=== PATIENT | female | born 1950 | race African-American/Black ===

== ENCOUNTER 2017-04-01 21:45 | Emergency (ER) | payer OTHER ==
[~2017-04-01] VITALS: Ht 172.7 cm; Wt 76.0 kg
[~2017-04-01 21:45] MED LIST: ASPI-1159 PO; BENA20TA3 PO; NIFE60TA64 PO
[2017-04-02 04:30] VITALS: BP 126/75
== END 2017-04-02 05:30 | disposition home or self-care (01) ==
LOC: ER 21:45
DX: B00.1 Herpesviral vesicular dermatitis (principal); H54.3 Unqualified visual loss, both eyes; I10 Essential (primary) hypertension
CPT/HCPCS: 99282

== ENCOUNTER 2017-04-04 23:28 | Emergency (ER) | payer OTHER ==
[~2017-04-04] VITALS: Ht 170.2 cm; Wt 76.0 kg
[2017-04-05] MEDS ORDERED: ACETAMINOPHEN 325MG TABLET PO ONE ×2 (07:00→07:15)
[2017-04-05 07:40] VITALS: BP 130/71
== END 2017-04-05 08:14 | disposition home or self-care (01) ==
LOC: ER 23:28
DX: S00.03XA Contusion of scalp, initial encounter (principal); I10 Essential (primary) hypertension; R42 Dizziness and giddiness; Z79.82 Long term (current) use of aspirin; Z86.73 Personal history of transient ischemic attack (TIA), and cerebral infarction without residual deficits; Y08.89XA Assault by other specified means, initial encounter; Y93.89 Activity, other specified; Y92.89 Other specified places as the place of occurrence of the external cause; Y99.8 Other external cause status
CPT/HCPCS: 70450; 70486; 72125; 99284

== ENCOUNTER 2017-05-04 03:41 | Emergency (ER) | payer OTHER ==
[~2017-05-04] VITALS: Ht 172.7 cm; Wt 75.5 kg
[2017-05-04 05:09] VITALS: BP 128/79
== END 2017-05-04 05:11 | disposition home or self-care (01) ==
LOC: ER 03:41
DX: G89.29 Other chronic pain (principal); M79.601 Pain in right arm; M79.602 Pain in left arm; M79.604 Pain in right leg; M79.605 Pain in left leg; I10 Essential (primary) hypertension; Z79.82 Long term (current) use of aspirin
CPT/HCPCS: 81025; 99282

== ENCOUNTER 2017-05-05 00:57 | Emergency (ER) | payer OTHER ==
[~2017-05-05] VITALS: Ht 170.2 cm; Wt 76.0 kg
[2017-05-05 01:13] VITALS: BP 144/91
== END 2017-05-05 08:13 | disposition left against medical advice (07) ==
LOC: ER 00:57
DX: Z53.21 Procedure and treatment not carried out due to patient leaving prior to being seen by health care provider (principal)

== ENCOUNTER 2017-05-07 00:31 | Emergency (ER) | payer OTHER ==
[~2017-05-07] VITALS: Ht 172.7 cm; Wt 77.0 kg
[2017-05-07 00:40] VITALS: BP 153/88
[2017-05-07] MEDS ORDERED: TRAMADOL 50MG TABLET PO ONE (01:30)
== END 2017-05-07 01:52 | disposition home or self-care (01) ==
LOC: ER 00:31
DX: Z76.0 Encounter for issue of repeat prescription (principal); M79.672 Pain in left foot; M79.671 Pain in right foot; G89.29 Other chronic pain; J06.9 Acute upper respiratory infection, unspecified; I10 Essential (primary) hypertension; F17.200 Nicotine dependence, unspecified, uncomplicated; Z79.82 Long term (current) use of aspirin
CPT/HCPCS: 99283

== ENCOUNTER 2017-05-09 04:36 | Emergency (ER) | payer OTHER ==
[~2017-05-09] VITALS: Ht 175.3 cm; Wt 77.0 kg
[2017-05-09] MEDS ORDERED: HYDROCODONE/ACETAMINOPHEN 5/325MG TABLET PO ONE (08:45)
[2017-05-09] MEDS ORDERED: KETOROLAC 60MG/2ML VIAL IM ONE (08:45)
[2017-05-09 10:25] VITALS: BP 108/62
== END 2017-05-09 12:27 | disposition home or self-care (01) ==
LOC: ER 04:36
DX: M21.611 Bunion of right foot (principal); M20.41 Other hammer toe(s) (acquired), right foot; I10 Essential (primary) hypertension; Z79.82 Long term (current) use of aspirin
CPT/HCPCS: 96372; 99283; J1885

== ENCOUNTER 2017-05-11 00:51 | Emergency (ER) | payer OTHER ==
[~2017-05-11] VITALS: Ht 172.7 cm; Wt 77.3 kg
[2017-05-11] MEDS ORDERED: KETOROLAC 60MG/2ML VIAL IM SCH (06:12)
[2017-05-11 07:01] LABS: BASOPHILS % 1.1 % (0.0-2.0); EOSINOPHILS % 2.9 % (0.0-5.0); HEMATOCRIT. 37.7 % (36.0-48.0); HEMOGLOBIN. 12.7 g/dL (12.0-16.0); LYMPHOCYTES % 34.9 % (20.0-50.0); MEAN CORPUSCULAR HEMOGLOBIN 34.2 pg (28.0-32.0); MEAN CORPUSCULAR VOLUME 101.4 fL (81.0-99.0); MEAN PLATELET VOLUME 9.5 fl (7.4-10.4); NEUTROPHILS % 51.1 % (40.0-76.0); PLATELET 222 x1000/uL (130-400); RED BLOOD CELL COUNT 3.72 mill/uL (4.2-5.4); RED CELL DISTRIBUTION WIDTH 13.4 % (11.6-14.6)
[2017-05-11 09:49] VITALS: BP 134/85
== END 2017-05-11 09:54 | disposition home or self-care (01) ==
LOC: ER 00:51
DX: M20.11 Hallux valgus (acquired), right foot (principal); L84 Corns and callosities; M21.611 Bunion of right foot; I10 Essential (primary) hypertension; Z79.82 Long term (current) use of aspirin
CPT/HCPCS: 36415; 73630; 84550; 85025; 96372; 99285; J1885

== ENCOUNTER 2017-05-12 04:36 | Emergency (ER) | payer OTHER ==
[~2017-05-12] VITALS: Ht 172.7 cm; Wt 77.0 kg
[2017-05-12 06:17] VITALS: BP 146/71
== END 2017-05-12 07:02 | disposition home or self-care (01) ==
LOC: ER 04:36
DX: R05 Cough (principal); Z76.0 Encounter for issue of repeat prescription; I10 Essential (primary) hypertension; Z79.82 Long term (current) use of aspirin; Z59.0 Homelessness
CPT/HCPCS: 99283

== ENCOUNTER 2017-05-13 03:00 | Emergency (ER) | payer OTHER ==
[~2017-05-13] VITALS: Ht 172.7 cm; Wt 77.0 kg
[2017-05-13] MEDS ORDERED: ACETAMINOPHEN WITH CODEINE 300/30MG TABLET PO ONE (08:00)
[2017-05-13] MEDS ORDERED: KETOROLAC 30MG/ML VIAL IM ONE (08:00)
[2017-05-13 10:21] VITALS: BP 116/75
== END 2017-05-13 10:25 | disposition home or self-care (01) ==
LOC: ER 03:00
DX: M21.612 Bunion of left foot (principal); M21.611 Bunion of right foot; B34.9 Viral infection, unspecified; I10 Essential (primary) hypertension; Z79.82 Long term (current) use of aspirin
CPT/HCPCS: 96372; 99283; J1885

== ENCOUNTER 2017-05-14 02:39 | Emergency (ER) | payer OTHER ==
[~2017-05-14] VITALS: Ht 172.7 cm; Wt 77.4 kg
[2017-05-14] MEDS ORDERED: KETOROLAC 15MG/ML VIAL IM ONE (05:30)
[2017-05-14] MEDS ORDERED: KETOROLAC 60MG/2ML VIAL IM ONE (07:00)
[2017-05-14 07:14] VITALS: BP 142/74
[2017-05-14] MEDS ORDERED: ACYCLOVIR 400 MG TABLET PO ONE (07:30)
== END 2017-05-14 07:23 | disposition home or self-care (01) ==
LOC: ER 02:39
DX: M79.672 Pain in left foot (principal); M79.671 Pain in right foot; I10 Essential (primary) hypertension; B00.9 Herpesviral infection, unspecified; Z76.0 Encounter for issue of repeat prescription; Z79.82 Long term (current) use of aspirin; Z59.0 Homelessness
CPT/HCPCS: 96372; 99283; J1885

== ENCOUNTER 2017-05-15 01:55 | Emergency (ER) | payer OTHER ==
[~2017-05-15] VITALS: Ht 172.7 cm; Wt 77.0 kg
[2017-05-15] MEDS ORDERED: SODIUM CHLORIDE 0.9% 1,000 ML IV ONE (03:21)
[2017-05-15 03:38] LABS: BASOPHILS % 0.8 % (0.0-2.0); EOSINOPHILS % 5.4 % (0.0-5.0); HEMATOCRIT. 37.6 % (36.0-48.0); HEMOGLOBIN. 12.5 g/dL (12.0-16.0); LYMPHOCYTES % 30.4 % (20.0-50.0); MEAN CORPUSCULAR VOLUME 102.3 fL (81.0-99.0); MEAN PLATELET VOLUME 9.2 fl (7.4-10.4); MONOCYTES % 10.2 % (2.0-8.0); NEUTROPHILS % 53.2 % (40.0-76.0); PLATELET 213 x1000/uL (130-400); RED BLOOD CELL COUNT 3.67 mill/uL (4.2-5.4); RED CELL DISTRIBUTION WIDTH 13.1 % (11.6-14.6)
[2017-05-15 03:47] LABS: CHLORIDE 106 mEq/L (98-107); ETHANOL BLOOD < 10 mg/dL
[2017-05-15 06:53] VITALS: BP 114/61
== END 2017-05-15 06:53 | disposition home or self-care (01) ==
LOC: ER 01:55
DX: F10.129 Alcohol abuse with intoxication, unspecified (principal); I10 Essential (primary) hypertension; F17.200 Nicotine dependence, unspecified, uncomplicated; Z79.82 Long term (current) use of aspirin
CPT/HCPCS: 36415; 80053; 85025; 96360; 99284; G0482; J7030; Z7610

== ENCOUNTER 2017-05-20 02:09 | Emergency (ER) | payer OTHER ==
[~2017-05-20] VITALS: Ht 172.7 cm; Wt 78.0 kg
[2017-05-20] MEDS ORDERED: ALBUTEROL (0.083%) 2.5MG/3ML NEB HHN ONE (08:45)
[2017-05-20 09:45] VITALS: BP 134/77
== END 2017-05-20 10:08 | disposition home or self-care (01) ==
LOC: ER 02:18
DX: S90.121A Contusion of right lesser toe(s) without damage to nail, initial encounter (principal); R05 Cough; I10 Essential (primary) hypertension; M19.90 Unspecified osteoarthritis, unspecified site; Z79.82 Long term (current) use of aspirin; X58.XXXA Exposure to other specified factors, initial encounter; Y93.89 Activity, other specified; Y92.488 Other paved roadways as the place of occurrence of the external cause
CPT/HCPCS: 71045; 94640; 99283; J7611

== ENCOUNTER 2017-08-13 00:52 | Emergency (ER) | payer OTHER | END 2017-08-13 02:02 | disposition left against medical advice (07) | LOC: ER 00:52 | DX: Z53.21 Procedure and treatment not carried out due to patient leaving prior to being seen by health care provider (principal) ==

== ENCOUNTER 2017-09-11 05:19 | Emergency (ER) | payer OTHER ==
[~2017-09-11] VITALS: Ht 172.7 cm; Wt 74.0 kg
[2017-09-11 08:00] VITALS: BP 128/68
== END 2017-09-11 08:30 | disposition home or self-care (01) ==
LOC: ER 05:19
DX: J06.9 Acute upper respiratory infection, unspecified (principal); M20.11 Hallux valgus (acquired), right foot; I10 Essential (primary) hypertension
CPT/HCPCS: 71045; 73630; 99284

== ENCOUNTER 2018-10-21 02:07 | Emergency (ER) | payer OTHER ==
[~2018-10-21] VITALS: Ht 170.2 cm; Wt 68.8 kg
[~2018-10-21 02:07] MED LIST changes: -ASPI-1159 PO; +ASPI-1393 PO; +BENA20TA10 PO; -BENA20TA3 PO
[2018-10-21 02:31] VITALS: BP 170/83
== END 2018-10-21 09:20 | disposition home or self-care (01) ==
LOC: ER 02:07
DX: Z00.00 Encounter for general adult medical examination without abnormal findings (principal); Z59.0 Homelessness; I10 Essential (primary) hypertension; Z79.899 Other long term (current) drug therapy; Z79.82 Long term (current) use of aspirin
CPT/HCPCS: 99281

== ENCOUNTER 2018-10-21 21:38 | Emergency (ER) | payer OTHER ==
[~2018-10-21] VITALS: Ht 172.7 cm; Wt 69.2 kg
[2018-10-22] MEDS ORDERED: ACETAMINOPHEN 325MG TABLET PO ONE (00:15)
[2018-10-22 12:45] VITALS: BP 115/70
== END 2018-10-22 12:51 | disposition home or self-care (01) ==
LOC: ER 21:38
DX: M21.612 Bunion of left foot (principal); M21.611 Bunion of right foot; L84 Corns and callosities; I10 Essential (primary) hypertension; F12.10 Cannabis abuse, uncomplicated; Z79.82 Long term (current) use of aspirin; Z59.0 Homelessness
CPT/HCPCS: 73630; 99283

== ENCOUNTER 2018-10-22 23:01 | Emergency (ER) | payer OTHER ==
[~2018-10-22] VITALS: Ht 167.6 cm; Wt 63.0 kg
[2018-10-23] MEDS ORDERED: IBUPROFEN 800MG TABLET PO ONE (01:30)
[2018-10-23 09:02] VITALS: BP 139/84
== END 2018-10-23 09:02 | disposition home or self-care (01) ==
LOC: ER 23:21
DX: M79.672 Pain in left foot (principal); M79.671 Pain in right foot; I10 Essential (primary) hypertension; F12.10 Cannabis abuse, uncomplicated; Z59.0 Homelessness; Z79.82 Long term (current) use of aspirin
CPT/HCPCS: 99283

== ENCOUNTER 2018-12-12 08:55 | Emergency (ER) | payer OTHER ==
[~2018-12-12] VITALS: Ht 172.7 cm; Wt 70.0 kg
[2018-12-12] MEDS ORDERED: ACETAMINOPHEN 325MG TABLET PO ONE (11:30)
[2018-12-12] MEDS ORDERED: SULFAMETHOXAZOLE/TRIMETHOPRIM 800/160MG TABLET PO ONE (13:15)
[2018-12-12] MEDS ORDERED: CEPHALEXIN 250MG CAPSULE PO ONE (13:15)
[2018-12-12 14:05] VITALS: BP 149/88
== END 2018-12-12 14:40 | disposition home or self-care (01) ==
LOC: ER 10:40
DX: M79.672 Pain in left foot (principal); M79.671 Pain in right foot; I10 Essential (primary) hypertension; F12.10 Cannabis abuse, uncomplicated; Z79.82 Long term (current) use of aspirin; Z79.899 Other long term (current) drug therapy
CPT/HCPCS: 99284

== ENCOUNTER 2018-12-17 23:50 | Emergency (ER) | payer OTHER ==
[~2018-12-17] VITALS: Ht 170.2 cm; Wt 66.3 kg
[2018-12-18] MEDS ORDERED: NAPROXEN 250MG TABLET PO ONE (02:45)
[2018-12-18 03:16] LABS: BASOPHILS % 1.3 % (0.0-2.0); EOSINOPHILS % 4.3 % (0.0-5.0); HEMATOCRIT. 41.5 % (36.0-48.0); LYMPHOCYTES % 29.8 % (20.0-50.0); MEAN CORPUSCULAR HEMOGLOBIN 35.1 pg (28.0-32.0); MEAN CORPUSCULAR VOLUME 103.7 fL (81.0-99.0); MEAN PLATELET VOLUME 9.1 fl (7.4-10.4); MONOCYTES % 10.4 % (2.0-8.0); NEUTROPHILS % 54.2 % (40.0-76.0); PLATELET 220 x1000/uL (130-400); RED CELL DISTRIBUTION WIDTH 13.4 % (11.6-14.6)
[2018-12-18 03:26] LABS: CHLORIDE 105 mEq/L (98-107)
[2018-12-18 03:29] LABS: ETHANOL BLOOD < 10 mg/dL
[2018-12-18] MEDS ORDERED: SODIUM CHLORIDE 0.9% 1,000 ML IV ONE (05:23)
[2018-12-18 05:35] LABS: *AMPHETAMINES SCREEN URINE NEGATIVE (NEGATIVE); *BARBITURATES SCREEN URINE NEGATIVE (NEGATIVE); *BENZODIAZEPINES SCREEN URINE NEGATIVE (NEGATIVE); *COCAINE SCREEN URINE NEGATIVE (NEGATIVE); METHADONE URINE SCREEN NEGATIVE (NEGATIVE); OPIATES URINE SCREEN NEGATIVE (NEGATIVE)
[2018-12-18 05:37] LABS: CANNABINOID URINE SCREEN PRESUMTIVE POSITIVE (NEGATIVE); PHENCYCLIDINE URINE SCREEN NEGATIVE (NEGATIVE)
[2018-12-18 10:10] VITALS: BP 128/85
== END 2018-12-18 10:11 | disposition home or self-care (01) ==
LOC: ER 23:50
DX: M79.672 Pain in left foot (principal); M79.671 Pain in right foot; L84 Corns and callosities; Z48.00 Encounter for change or removal of nonsurgical wound dressing; I10 Essential (primary) hypertension; F12.10 Cannabis abuse, uncomplicated; Z59.0 Homelessness
CPT/HCPCS: 36415; 80048; 80305; 80307; 80320; 80329; 85025; 99283; J7030; Z7610; G0480

== ENCOUNTER 2019-03-10 02:47 | Emergency (ER) | payer OTHER ==
[~2019-03-10] VITALS: Ht 172.7 cm; Wt 73.7 kg
[2019-03-10] MEDS ORDERED: IBUPROFEN 600MG TABLET PO ONE (06:00)
[2019-03-10 08:05] VITALS: BP 128/74
== END 2019-03-10 16:01 | disposition home or self-care (01) ==
LOC: ER 02:47
DX: M79.672 Pain in left foot (principal); M79.671 Pain in right foot; I10 Essential (primary) hypertension; Z59.0 Homelessness; Z79.82 Long term (current) use of aspirin; Z79.899 Other long term (current) drug therapy
CPT/HCPCS: 99283; Z7610

== ENCOUNTER 2019-05-29 03:01 | Emergency (ER) | payer OTHER ==
[~2019-05-29] VITALS: Ht 172.7 cm; Wt 71.0 kg
[~2019-05-29 03:01] MED LIST changes: -ASPI-1393 PO; +ASPI-1497 PO
[2019-05-29 03:20] VITALS: BP 135/80
== END 2019-05-29 07:11 | disposition home or self-care (01) ==
LOC: ER 03:01
DX: L84 Corns and callosities (principal); M79.672 Pain in left foot; M79.671 Pain in right foot; I10 Essential (primary) hypertension; Z79.899 Other long term (current) drug therapy
CPT/HCPCS: 99281

== ENCOUNTER 2019-05-31 17:49 | Emergency (ER) | payer OTHER ==
[~2019-05-31] VITALS: Ht 175.3 cm; Wt 75.0 kg
[2019-05-31 20:35] LABS: BASOPHILS % 1.3 % (0.0-2.0); EOSINOPHILS % 3.8 % (0.0-5.0); HEMATOCRIT. 30.5 % (36.0-48.0); HEMOGLOBIN. 10.3 g/dL (12.0-16.0); LYMPHOCYTES % 35.9 % (20.0-50.0); MEAN CORPUSCULAR HEMOGLOBIN 33.4 pg (28.0-32.0); MEAN CORPUSCULAR VOLUME 98.4 fL (81.0-99.0); MEAN PLATELET VOLUME 9.1 fl (7.4-10.4); PLATELET 234 x1000/uL (130-400); RED CELL DISTRIBUTION WIDTH 12.7 % (11.6-14.6)
[2019-05-31 20:44] LABS: CHLORIDE 110 mEq/L (98-107)
[2019-06-01 09:40] VITALS: BP 110/62
== END 2019-06-01 11:47 | disposition home or self-care (01) ==
LOC: ER 17:49
DX: R25.2 Cramp and spasm (principal); I10 Essential (primary) hypertension; Z59.0 Homelessness; Z75.1 Person awaiting admission to adequate facility elsewhere; Z79.82 Long term (current) use of aspirin
CPT/HCPCS: 36415; 80053; 85025; 99285

== ENCOUNTER 2019-06-01 19:13 | Emergency (ER) | payer OTHER ==
[~2019-06-01] VITALS: Ht 167.6 cm; Wt 65.0 kg
[2019-06-02] MEDS ORDERED: NAPROXEN 250MG TABLET PO ONE (06:45)
[2019-06-02 09:53] VITALS: BP 137/82
== END 2019-06-02 11:07 | disposition home or self-care (01) ==
LOC: ER 19:13
DX: M79.672 Pain in left foot (principal); M79.671 Pain in right foot; I10 Essential (primary) hypertension; Z59.0 Homelessness
CPT/HCPCS: 99285

== ENCOUNTER 2019-06-02 19:52 | Emergency (ER) | payer OTHER ==
[~2019-06-02] VITALS: Ht 170.2 cm; Wt 75.0 kg
[2019-06-02] MEDS ORDERED: ACETAMINOPHEN 500MG TABLET PO ONE (22:45)
[2019-06-03 06:55] VITALS: BP 134/65
== END 2019-06-03 10:08 | disposition home or self-care (01) ==
LOC: ER 19:52
DX: Z04.89 Encounter for examination and observation for other specified reasons (principal); I10 Essential (primary) hypertension; Z59.0 Homelessness; Z79.82 Long term (current) use of aspirin; Z75.1 Person awaiting admission to adequate facility elsewhere
CPT/HCPCS: 99285

== ENCOUNTER 2019-06-04 20:27 | Emergency (ER) | payer OTHER ==
[~2019-06-04] VITALS: Ht 170.2 cm; Wt 72.6 kg
[2019-06-04] MEDS ORDERED: ACETAMINOPHEN 650MG/20.3ML UDC PO ONE (22:30)
[2019-06-04] MEDS ORDERED: ACETAMINOPHEN 500MG TABLET PO ONE (23:00)
[2019-06-05 07:00] VITALS: BP 129/76
== END 2019-06-05 09:43 | disposition home or self-care (01) ==
LOC: ER 20:27
DX: M79.672 Pain in left foot (principal); M79.671 Pain in right foot; I10 Essential (primary) hypertension; Z59.0 Homelessness; Z79.82 Long term (current) use of aspirin; Z79.899 Other long term (current) drug therapy
CPT/HCPCS: 99282

== ENCOUNTER 2020-03-06 22:20 | Emergency (ER) | payer MEDICAID, OTHER ==
[~2020-03-06] VITALS: Ht 172.7 cm; Wt 76.1 kg
[2020-03-07 06:04] VITALS: BP 154/78
== END 2020-03-07 06:11 | disposition home or self-care (01) ==
LOC: ER 22:20
DX: G89.29 Other chronic pain (principal); M79.605 Pain in left leg; M79.604 Pain in right leg; I10 Essential (primary) hypertension
CPT/HCPCS: 99281

== ENCOUNTER 2020-03-08 05:41 | Emergency (ER) | payer MEDICAID, OTHER ==
[~2020-03-08] VITALS: Ht 172.7 cm; Wt 76.0 kg
[2020-03-08 05:45] VITALS: BP 137/78
== END 2020-03-08 06:28 | disposition home or self-care (01) ==
LOC: ER 05:41
DX: Z13.9 Encounter for screening, unspecified (principal); I10 Essential (primary) hypertension; Z59.0 Homelessness
CPT/HCPCS: 99281

== ENCOUNTER 2020-03-17 01:26 | Emergency (ER) | payer OTHER ==
[~2020-03-17] VITALS: Ht 170.2 cm; Wt 73.0 kg
[2020-03-17 01:46] VITALS: BP 136/84
== END 2020-03-17 06:03 | disposition home or self-care (01) ==
LOC: ER 01:26
DX: Z04.89 Encounter for examination and observation for other specified reasons (principal); I10 Essential (primary) hypertension; Z59.0 Homelessness; Z98.890 Other specified postprocedural states; Z79.82 Long term (current) use of aspirin
CPT/HCPCS: 99281

== ENCOUNTER 2020-03-19 02:32 | Emergency (ER) | payer OTHER ==
[~2020-03-19] VITALS: Ht 170.2 cm; Wt 75.0 kg
[2020-03-19 03:30] VITALS: BP 136/88
== END 2020-03-19 03:30 | disposition home or self-care (01) ==
LOC: ER 02:32
DX: Z04.89 Encounter for examination and observation for other specified reasons (principal); Z59.0 Homelessness
CPT/HCPCS: 99281

== ENCOUNTER 2021-02-01 12:03 | Emergency (ER) | payer OTHER ==
[~2021-02-01] VITALS: Ht 165.1 cm; Wt 68.0 kg
[2021-02-01 12:44] VITALS: BP 116/93
== END 2021-02-01 13:44 | disposition home or self-care (01) ==
LOC: ER 12:03
DX: M25.572 Pain in left ankle and joints of left foot (principal); I10 Essential (primary) hypertension; Z79.82 Long term (current) use of aspirin; Y04.0XXA Assault by unarmed brawl or fight, initial encounter; Y93.89 Activity, other specified; Y92.89 Other specified places as the place of occurrence of the external cause
CPT/HCPCS: 99281